=== PATIENT | male | born 1990 | race African-American/Black ===

== ENCOUNTER 2016-12-22 14:05 | Emergency (ER) | payer OTHER ==
[~2016-12-22] VITALS: Ht 180.3 cm; Wt 77.0 kg
[2016-12-22 14:19] VITALS: BP 132/63
== END 2016-12-22 19:12 | disposition left against medical advice (07) ==
LOC: ER 14:05
DX: R10.9 Unspecified abdominal pain (principal); Z53.21 Procedure and treatment not carried out due to patient leaving prior to being seen by health care provider

== ENCOUNTER 2020-09-11 23:51 | Emergency (ER) | payer MEDICAID ==
[~2020-09-11] VITALS: Ht 180.3 cm; Wt 78.0 kg
[2020-09-12] MEDS ORDERED: KETOROLAC 60MG/2ML VIAL IM ONE (03:15)
[2020-09-12 04:23] VITALS: BP 124/66
[2020-09-12] MEDS ORDERED: HYDR-4346 PO (04:30)
[2020-09-12] MEDS ORDERED: IBUP-2029 MT (04:30)
== END 2020-09-12 04:58 | disposition home or self-care (01) ==
LOC: ER 23:51
DX: S22.42XA Multiple fractures of ribs, left side, initial encounter for closed fracture (principal); M54.5 Low back pain; M54.2 Cervicalgia; V49.49XA Driver injured in collision with other motor vehicles in traffic accident, initial encounter; Y93.89 Activity, other specified; Y92.488 Other paved roadways as the place of occurrence of the external cause
CPT/HCPCS: 71101; 72100; 96372; 99284; J1885